=== PATIENT | female | born 1990 | race Caucasian/White ===

== ENCOUNTER → 2019-07-22 | Outpatient (CLI) | payer OTHER ==
[~2019-07-22] MED LIST: PROHANCE 279.3MG/ML 5ML VIAL (A9576) As Ordered ONE
--- NOTE | 2019-07-23 16:07 | REPVR ---
PROCEDURE INFORMATION: Exam: MR Head Without and With Contrast, Sella Exam date and time: 07/22/2019 4:23 PM Age: 29 years old Clinical indication: Condition or disease; Brain lesion; Patient HX: Per PT, HX pituitary tumor, f/u exam. I do not have priors. ; Additional info: Benign neoplasm of pituitary gland TECHNIQUE: Imaging protocol: MR of the head without and with intravenous contrast. Exam focused on the sella. Contrast material: PROHANCE; Contrast volume: 7 ml; Contrast route: IV; COMPARISON: No relevant prior studies available. FINDINGS: Brain: There is no acute intracranial hemorrhage, cerebral edema, or midline shift. No restricted diffusion is present to suggest acute infarction. No enhancing lesions were identified after the administration of contrast. Ventricles: No hydrocephalus. Sinuses: There is mild mucosal thickening noted within the paranasal sinuses. Prior ethmoidectomy and medial maxillary antrostomy surgery has been performed. Mastoid air cells: The mastoid air cells are clear. Sella: There is a 7.5 x 4.5 x 3.0 cm area of high T1 signal in the posterior aspect of the pituitary gland, just to the right of midline. This most likely represents normal posterior pituitary tissue. A microadenoma containing proteinaceous or hemorrhagic material is considered highly unlikely. The pituitary stalk is minimally deviated to the right. Bones/joints: Unremarkable. IMPRESSION: No acute abnormality. Correlation with previous imaging is recommended. Electronically signed by: Ifeanyi Zuniga On 07/23/2019 16:07:13 PM
== END ==
LOC: M RAD 16:18
PROVIDERS: ATTEND Internal Medicine Endocrinology, Diabetes & Metabolism
DX: D35.2 Benign neoplasm of pituitary gland (principal)
CPT/HCPCS: 70553; A9576

== ENCOUNTER 2020-05-07 20:32 | Emergency (ER) | payer OTHER ==
[~2020-05-07] VITALS: Ht 170.2 cm; Wt 74.1 kg
[2020-05-07] MEDS ORDERED: CELE20TA PO (20:38)
[2020-05-07 21:47] LABS: BASO # 0.1 10^3/uL (0.0-0.2); BASO % 0.6 % (0.0-1.0); EOS # 0.1 10^3/uL (0.0-0.5); EOS % 0.9 % (0.0-3.0); HEMATOCRIT 38.5 % (36.0-47.0); HEMOGLOBIN 12.7 g/dl (12.0-15.5); LYMPH # 2.9 10^3/uL (1.5-5.0); LYMPH % 27.6 % (24.0-44.0); MEAN CORPUSCULAR HEMOGLOBIN 29.6 pg (27.0-33.0); MEAN CORPUSCULAR VOLUME 89.7 fl (80.0-96.0); MONO # 0.5 10^3/uL (0.0-0.8); MONO % 4.9 % (0.0-5.0); NEUTROPHILS # 6.9 10^3/uL (1.5-8.5); NEUTROPHILS % 65.7 % (36.0-66.0); PLATELET COUNT, AUTOMATED 199 10^3/uL (150-450); RED BLOOD COUNT 4.29 10^6/uL (4.00-5.40); WHITE BLOOD COUNT 10.4 10^3/uL (4.0-10.0)
[2020-05-07 22:10] LABS: HCG, SERUM QUALITATIVE NEGATIVE (NEGATIVE)
[2020-05-07 22:11] LABS: ALT/SGPT 19 U/L (12-78); BILIRUBIN,DIRECT < 0.1 MG/DL (0.0-0.2); BILIRUBIN,TOTAL 0.3 MG/DL (0.2-1.0); BLOOD UREA NITROGEN 9 MG/DL (7-18); CALCIUM LEVEL 8.8 MG/DL (8.5-10.1); CARBON DIOXIDE LEVEL 27 MEQ/L (21-32); CHLORIDE LEVEL 106 MEQ/L (98-107); CREATININE FOR GFR 0.83 MG/DL (0.55-1.30); GLOMERULAR FILTRATION RATE > 60.0 (>60); GLUCOSE, FASTING 81 MG/DL (70-100); LIPASE 126 U/L (73-393); POTASSIUM SERUM 3.9 MEQ/L (3.5-5.1); SODIUM LEVEL 139 MEQ/L (136-145)
[2020-05-08] MEDS ORDERED: ISOVUE-370 76% 100ML VIAL As Ordered ONE (00:09)
[2020-05-08] MEDS ORDERED: ONDANSETRON 4MG/2ML VIAL IV ONE (00:15)
[2020-05-08] MEDS ORDERED: KETOROLAC 30 MG/ML 1ML VIAL IV ONE (00:15)
--- NOTE | 2020-05-08 00:39 | REPVR ---
PROCEDURE INFORMATION: Exam: CT Abdomen And Pelvis With Contrast Exam date and time: 05/08/2020 12:05 AM Age: 30 years old Clinical indication: Abdominal pain; Localized; Left lower quadrant (llq); Additional info: Left lower quadrant pain TECHNIQUE: Imaging protocol: Computed tomography of the abdomen and pelvis with intravenous contrast. Radiation optimization: All CT scans at this facility use at least one of these dose optimization techniques: automated exposure control; mA and/or kV adjustment per patient size (includes targeted exams where dose is matched to clinical indication); or iterative reconstruction. Contrast material: ISO; Contrast volume: 100 ml; Contrast route: INTRAVENOUS (IV); COMPARISON: No relevant prior studies available. FINDINGS: Liver: Normal. No mass. Gallbladder and bile ducts: Normal. No calcified stones. No ductal dilation. Pancreas: Normal. No ductal dilation. Spleen: Normal. No splenomegaly. Adrenal glands: Normal. No mass. Kidneys and ureters: Normal. No hydronephrosis. Stomach and bowel: Moderate amount of fecal material in the colon. No obstruction. No mucosal thickening or inflammatory changes. Appendix: No evidence of appendicitis. Intraperitoneal space: Small amount of free fluid in the pelvis. No abscess or pneumoperitoneum. Vasculature: Unremarkable. No abdominal aortic aneurysm. Lymph nodes: Unremarkable. No enlarged lymph nodes. Urinary bladder: Unremarkable as visualized. Reproductive: Unremarkable as visualized. Bones/joints: Unremarkable. No acute fracture. Soft tissues: Unremarkable. IMPRESSION: 1. Mild likely physiologic free fluid in the pelvis. No abscess or pneumoperitoneum. 2. Mild constipation. 3. No acute findings. Electronically signed by: Milind Hernandez On 05/08/2020 00:39:35 AM
[2020-05-08] MEDS ORDERED: NAPR-837 PO (01:35)
[2020-05-08 02:00] VITALS: BP 130/79
--- NOTE | 2020-05-08 21:32 | ECGEPIP ---
[facility] - ED Test Date: 2020-05-07 Pat Name: DORIS HERNANDEZ Department: Room: - Gender: Female Director Critical Care: NATI : 1990 Requested By: CAESAR Gudino Order Number: [id number] Reading MD: Doris Heath Measurements Intervals [place] Rate: 69 P: 50 SC: 151 QRS: 59 QRSD: 78 T: 60 QT: 396 QTc: 426 Interpretive Statements SINUS RHYTHM NO PRIOR Electronically Signed on 05-08-2020 21:32:16 EST by Doris Heath
== END 2020-05-08 02:12 | disposition home or self-care (01) ==
LOC: M ED 20:32
DX: R10.9 Unspecified abdominal pain (principal); I51.9 Heart disease, unspecified; K21.9 Gastro-esophageal reflux disease without esophagitis; Z79.899 Other long term (current) drug therapy; Z87.42 Personal history of other diseases of the female genital tract; Z84.2 Family history of other diseases of the genitourinary system
CPT/HCPCS: 74177; 80048; 80076; 81001; 83690; 84703; 85025; 93005; 96374; 96375; 99284; J1885; J2405; Q9967

== ENCOUNTER 2020-09-21 07:12 | Day surgery (SDC) | payer OTHER ==
[~2020-09-21] VITALS: Ht 170.2 cm; Wt 72.1 kg
[~2020-09-21 07:12] MED LIST changes: +CELE20TA PO; +CITA20TA6 PO; +NAPR-837 PO; +OMEP-221 PO; -PROHANCE 279.3MG/ML 5ML VIAL (A9576) As Ordered ONE
[2020-09-21] MEDS ORDERED: NS 1,000 ML IV ONE (07:50)
[2020-09-21] MEDS ORDERED: LIDOCAINE 2% 100MG/5ML SDV (FOR ANES.) As Ordered ONE (08:23)
[2020-09-21] MEDS ORDERED: propofoL 200 MG/20 ML VIAL As Ordered ONE (08:23)
--- NOTE | 2020-09-21 08:46 | ROOR ---
Patient Name: Doris Joseph Procedure Date: 09/21/2020 8:31 AM Date of : 1990 Age: 30 Room: [facility] Gender: Female Note Status: Finalized Procedure: Upper Endoscopy + Biopsies Indications: Heartburn, Nausea with vomiting Providers: Gunner Antoine MD Referring MD: CA PENALOZA MD Requesting Provider: Medicines: Monitored Anesthesia Care Complications: No immediate complications. Procedure: Pre-Anesthesia Assessment: - The heart rate, respiratory rate, oxygen saturations, blood pressure, adequacy of pulmonary ventilation, and response to care were monitored throughout the procedure. The Endoscope was introduced through the mouth, and advanced to the second part of duodenum. The upper GI endoscopy was accomplished without difficulty. The patient tolerated the procedure well. Findings: The Z-line was variable and was found 40 cm from the incisors. Multiple biopsies were obtained with cold forceps for evaluation to rule out Ragsdale's Esophagus randomly at the gastroesophageal junction. No other significant abnormalities were identified in a careful examination of the stomach. Biopsies were taken with a cold forceps in the gastric antrum for Helicobacter pylori testing. The exam of the duodenum was otherwise normal. Impression: - Z-line variable, 40 cm from the incisors. - Multiple biopsies were obtained at the gastroesophageal junction. - Biopsies were taken with a cold forceps for Helicobacter pylori testing. - The examination was otherwise normal. Recommendation: - Patient has a contact number available for emergencies. The signs and symptoms of potential delayed complications were discussed with the patient. Return to normal activities tomorrow. Written discharge instructions were provided to the patient. - High fiber diet. - Discharge patient to home. - Continue present medications. - Await pathology results. - Telephone GI clinic for pathology results in 1 week. - Return to referring physician. - The findings and recommendations were discussed with the patient. Procedure Code(s): --- Professional --- 80910, Esophagogastroduodenoscopy, flexible, transoral; with biopsy, single or multiple Diagnosis Code(s): --- Professional --- K22.8, Other specified diseases of esophagus R12, Heartburn R11.2, Nausea with vomiting, unspecified CPT copyright 2019 [employer]. All rights reserved. The codes documented in this report are preliminary and upon cloud administrator review may be revised to meet current compliance requirements. Gunner Antoine MD Gunner Antoine MD 09/21/2020 8:45:43 AM Electronically signed by Gunner Antoine MD Number of Addenda: 0 Note Initiated On: 09/21/2020 8:31 AM Estimated Blood Loss: Estimated blood loss: none.
--- NOTE | 2020-09-21 08:58 | ROOR ---
Patient Name: Doris Joseph Procedure Date: 09/21/2020 8:32 AM Date of : 1990 Age: 30 Room: [facility] Gender: Female Note Status: Finalized Procedure: Total Colonoscopy to Cecum + ileoscopy Indications: Screening in patient at increased risk: Family history of 1st-degree relative with colorectal cancer, Incidental - Constipation Providers: Gunner Antoine MD Referring MD: CA PENALOZA MD Requesting Provider: Medicines: Monitored Anesthesia Care Complications: No immediate complications. Procedure: Pre-Anesthesia Assessment: - The heart rate, respiratory rate, oxygen saturations, blood pressure, adequacy of pulmonary ventilation, and response to care were monitored throughout the procedure. The Colonoscope was introduced through the anus and advanced to the terminal ileum, with identification of the appendiceal orifice and IC valve. The colonoscopy was performed without difficulty. The patient tolerated the procedure well. The quality of the bowel preparation was excellent. Findings: The perianal and digital rectal examinations were normal. No other significant abnormalities were identified in a careful examination of the remainder of the colon. The terminal ileum appeared normal. The exam was otherwise without abnormality. Impression: - The examined portion of the ileum was normal. - The examination was otherwise normal. - No specimens collected. - The exam was otherwise normal to the cecum. Recommendation: - Patient has a contact number available for emergencies. The signs and symptoms of potential delayed complications were discussed with the patient. Return to normal activities tomorrow. Written discharge instructions were provided to the patient. - High fiber diet. - Discharge patient to home. - Continue present medications. - Repeat colonoscopy at age 51 for screening purposes. - Return to referring physician. - The findings and recommendations were discussed with the patient. Procedure Code(s): --- Professional --- G0105, Colorectal cancer screening; colonoscopy on individual at high risk Diagnosis Code(s): --- Professional --- Z80.0, Family history of malignant neoplasm of digestive organs CPT copyright 2019 [employer]. All rights reserved. The codes documented in this report are preliminary and upon remote coders review may be revised to meet current compliance requirements. Gunner Antoine MD Gunner Antoine MD 09/21/2020 8:58:08 AM Electronically signed by Gunner Antoine MD Number of Addenda: 0 Note Initiated On: 09/21/2020 8:32 AM Estimated Blood Loss: Estimated blood loss: none.
[2020-09-21 09:35] VITALS: BP 101/54
== END 2020-09-21 09:35 | disposition home or self-care (01) ==
LOC: M OPP 07:12
PROVIDERS: ATTEND Internal Medicine Gastroenterology
DX: Z12.11 Encounter for screening for malignant neoplasm of colon (principal); Z80.0 Family history of malignant neoplasm of digestive organs; K22.8 Other specified diseases of esophagus; R12 Heartburn; R11.2 Nausea with vomiting, unspecified; K59.00 Constipation, unspecified; K21.9 Gastro-esophageal reflux disease without esophagitis; Z79.899 Other long term (current) drug therapy; Z91.048 Other nonmedicinal substance allergy status